=== PATIENT | male | born 1945 | race Caucasian/White ===

== ENCOUNTER 2020-12-28 16:29 | Emergency (ER) | payer MEDICARE, MEDICAID ==
[2020-12-28 18:27] LABS: Absolute Neutrophil Ct (ANC) 4.64 (1.4-6.9); BASOPHIL % 0.1 % (0.0-0.4); Basophil (Absolute #) 0.01 (0-0.4); Eosinophil % 3.9 % (0.00-5.0); Eosinophil (Absolute #) 0.26 (0-0.5); Hematocrit 35.8 % (42-50); Hemoglobin 10.6 gm/dl (12.5-18.0); Lymphocytes % 16.5 % (24.0-44.0); Mean Cell Volume 99.2 fl (78-100); Mean Corpuscular Hemoglobin 29.4 pg (26-32); Mean Corpuscular Hgb Concent. 29.6 g/dl (32-36); Mean Platelet Volume 9.2 fl (7.5-11.0); Monocyte (Absolute #) 0.67 (0.0-1.3); Neutrophil % 69.5 % (36.0-66.0); Platelet Count 202 K/mm3 (150-450); Red Blood Count 3.61 M/mm3 (4.1-5.6); Red Cell Distribution Width 13.5 % (11.5-14.0); White Blood Count 6.7 K/mm3 (4.0-10.5)
[2020-12-28 18:47] LABS: ALBUMIN 4.3 g/dL (3.5-5.0); ANION GAP 14.7 MEQ/L (5-15); BILIRUBIN,TOTAL 0.3 mg/dL (0.2-1.3); Creatinine 1 3.96 mg/dL (0.66-1.25); EST GLOMERULAR FILTRATION RATE 15.8 ML/MIN; MAGNESIUM 2.2 mg/dL (1.6-2.3); Potassium 4.8 mmol/L (3.5-5.1)
[2020-12-28 19:10] LABS: Appearance CLOUDY (CLEAR); Bacteria MODERATE /HPF (NEGATIVE); Bilirubin NEGATIVE (NEGATIVE); Blood NEGATIVE Ery/ul (0-5); Glucose NEGATIVE (NEGATIVE); Ketones NEGATIVE (NEGATIVE); Leukocyte Esterase LARGE (NEGATIVE); Nitrite NEGATIVE (NEGATIVE); Protein,Urine Dip >=500 (Negative); Specific Gravity 1.013 (1.005-1.025); Urobilinogen NEGATIVE mg/dL (0-1); WBC >100 /HPF (0-5)
[2020-12-28 19:34] VITALS: O2SAT 97
[2020-12-28 19:38] VITALS: BP 116/59; PULSE 78
--- NOTE | 2020-12-28 20:44 | ERPHSYRPT ---
- History of Present Illness Time Seen by Provider: 12/28/20 16:45 Source: patient Exam Limitations: no limitations Patient Subjective Stated Complaint: Pt was at dialysis when he had a syncopal episode, pt states that he didn't have one Triage Nursing Assessment: Pt brought to the ER by EMS from dialysis due to having a syncopal episode, pt denies having one, pt is confused, A&O to name and only, slow to answer and states that he doesn't know on most questions, pt unable to tell me if he completed dialysis today, pulses normal, skin P/C/D, rates head pain as 5/10 Physician History: Patient is a 75-year-old male presents to our emergency department via EMS for evaluation of syncope. Patient was at hemodialysis when he had a witnessed syncopal episode. Patient receives hemodialysis Saturday. Patient's fuels sales representative is Dr. Lee. Patient denies syncope. However patient does appear somewhat confused. Patient complains of a frontal headache. There was no indication of blunt head trauma. Patient denies chest pain. No nausea vomiting or diaphoresis. Symptoms are mild to moderate in intensity. No specific worsening improving factors. Patient voices no other complaints donnell rns at this time. Timing/Duration: today Severity: moderate Modifying Factors: Improves With: nothing Associated Symptoms: denies symptoms Allergies/Adverse Reactions: No Known Drug Allergies Allergy (Verified 12/28/20 16:51) Home Medications: Atorvastatin Calcium 80 mg PO DAILY 12/28/20 [History] Carvedilol 6.25 mg [Coreg 6.25 MG] 6.25 mg PO BID 12/28/20 [History] Donepezil HCl 10 mg [Aricept 10 MG] 10 mg PO HS 12/28/20 [History] Ferric Citrate [Auryxia] 210 mg PO TID 12/28/20 [History] Gabapentin 100 mg [Neurontin 100 MG] 100 mg PO DAILY 12/28/20 [History] Isosorbide Mononitrate 30 mg [Imdur 30 MG] 30 mg PO DAILY 12/28/20 [History] Midodrine HCl 5 mg [Proamatine 5 mg] 5 mg PO TID 12/28/20 [History] Olanzapine 2.5 mg PO DAILY 12/28/20 [History] Sertraline HCl 50 mg [Zoloft 50 mg Tablet] 75 mg PO DAILY 12/28/20 [History] Ticagrelor [Brilinta] 90 mg PO BID 12/28/20 [History] Trazodone HCl 100 mg PO DAILY 12/28/20 [History] Travel Risk - International Travel Have you traveled outside of the country in past 3 weeks: No - Coronavirus Screening Are you exhibiting any of the following symptoms?: No Close contact with a COVID-19 positive Pt in past 14-21 Days: No - Vaccine Status Have you recieved a Covid-19 vaccination: No - Review of Systems Constitutional: No Symptoms, No Fever, No Chills Eyes: No Symptoms Ears, Nose, & Throat: No Symptoms Respiratory: No Symptoms, No Cough, No Dyspnea Cardiac: No Symptoms, No Chest Pain, No Edema, No Syncope Abdominal/Gastrointestinal: No Symptoms, No Abdominal Pain, No Nausea, No Vomiting, No Diarrhea Genitourinary Symptoms: No Symptoms, No Dysuria Musculoskeletal: No Symptoms, No Back Pain, No Neck Pain Skin: No Symptoms, No Rash Neurological: No Symptoms, No Dizziness, No Focal Weakness, No Sensory Changes Psychological: No Symptoms Endocrine: No Symptoms Immunological/Allergic: No Symptoms All Other Systems: Reviewed and Negative - Past Medical History Pertinent Past Medical History: Yes Cardiac History: Hypertension Endocrine Medical History: Diabetes Type II History: Renal Disease - Past Surgical History Past Surgical History: No - Social History Smoking Status: Former smoker Exposure to second hand smoke: No Drug Use: none Patient Lives Alone: Yes - Nursing Vital Signs Nursing Vital Signs: Initial Vital Signs Temperature 97.4 F 12/28/20 16:32 Pulse Rate 80 12/28/20 16:32 Blood Pressure 142/66 12/28/20 16:32 O2 Sat by Pulse Oximetry 100 12/28/20 16:32 Pain Scale Pain Intensity 5 - Physical Exam General Appearance: no apparent distress, alert Eye Exam: PERRL/EOMI, eyes nml inspection Ears, Nose, Throat Exam: normal ENT inspection, TMs normal, pharynx normal, moist mucous membranes Neck Exam: normal inspection, non-tender, supple, full range of motion Respiratory Exam: normal breath sounds, lungs clear, No respiratory distress Cardiovascular Exam: regular rate/rhythm, normal heart sounds, normal peripheral pulses Gastrointestinal/Abdomen Exam: soft, normal bowel sounds, No tenderness, No mass Back Exam: normal inspection, normal range of motion, No CVA tenderness, No vertebral tenderness Extremity Exam: normal inspection, normal range of motion, pelvis stable Neurologic Exam: alert, oriented x 3, cooperative, normal mood/affect, sensation nml, No motor deficits Skin Exam: normal color, warm, dry, No rash Lymphatic Exam: No adenopathy SpO2 Interpretation: normal SpO2: 97 O2 Delivery: Room Air - Course Nursing assessment & vital signs reviewed: Yes EKG Interpreted by Me: RATE (75), Sinus Rhythm, NORMAL AXIS (TWI V5 and 6), NORMAL INTERVALS Ordered Tests: Active Orders 24 hr Category Date Time Status Market Research Assistant STAT Care 12/28/20 17:07 Completed EKG-ER Only STAT Care 12/28/20 17:06 Completed EKG-ER Only STAT Care 12/29/20 03:06 Completed IV Insertion STAT Care 12/28/20 17:06 Completed Pulse Oximetry (ED) STAT Care 12/28/20 17:06 Completed HEAD WITHOUT CONTRAST [CT] Stat Exams 12/28/20 17:08 Taken CBC W DIFF Stat Lab 12/28/20 18:24 Completed CMP Stat Lab 12/28/20 18:24 Completed CULTURE,URINE Stat Lab 12/28/20 18:46 Received MAGNESIUM Stat Lab 12/28/20 18:24 Completed TROPONIN Q3H Lab 12/28/20 18:24 Completed TROPONIN Q3H Lab 12/28/20 20:15 Completed TROPONIN Q3H Lab 12/28/20 23:15 Completed TROPONIN Q3H Lab 12/29/20 02:40 Completed UA W/RFX UR CULTURE Stat Lab 12/28/20 18:46 Completed Medication Summary Discontinued Medications Generic Name Dose Route Start Last Admin Trade Name Freq PRN Reason Stop Dose Admin Aspirin 324 mg 12/29/20 02:55 12/29/20 03:37 Baby Aspirin 81 Mg Chew PO 12/29/20 02:56 324 mg STAT ONE Administration Aspirin Confirm 12/29/20 03:37 Baby Aspirin 81 Mg Chew Administered 12/29/20 03:38 Dose 324 mg .ROUTE .STK-MED ONE Ceftriaxone Sodium/Dextrose 1 g in 50 mls @ 100 mls/hr 12/29/20 10:00 12/28/20 22:43 Rocephin 1 Gm-D5w 50 Ml Bag IV 01/01/21 09:59 Infused Q24H10 BELA Infusion Ceftriaxone Sodium/Dextrose Confirm 12/28/20 20:49 Rocephin 1 Gm-D5w 50 Ml Bag Administered 12/28/20 20:50 Dose 1 g in 50 mls @ ud IV .STK-MED ONE Nitroglycerin 1 gm 12/29/20 02:56 12/29/20 03:38 Nitro-Bid 2% Ud Packets TOP 12/29/20 02:57 1 gm STAT ONE Administration Nitroglycerin Confirm 12/29/20 03:37 Nitro-Bid 2% Ud Packets Administered 12/29/20 03:38 Dose 1 gm .ROUTE .STK-MED ONE Lab/Rad Data: Laboratory Result Diagrams 12/28/20 18:24 12/28/20 18:24 Laboratory Results 12/29/20 12/28/20 12/28/20 Range/Units 02:40 23:15 20:15 WBC (4.0-10.5) K/mm3 RBC (4.1-5.6) M/mm3 Hgb (12.5-18.0) gm/dl Hct (42-50) % MCV (78-100) fl MCH (26-32) pg MCHC (32-36) g/dl RDW (11.5-14.0) % Plt Count (150-450) K/mm3 MPV (7.5-11.0) fl Gran % (36.0-66.0) % Eos # (Auto) (0-0.5) Absolute Lymphs (auto) (1.0-4.6) Absolute Monos (auto) (0.0-1.3) Lymphocytes % (24.0-44.0) % Monocytes % (0.0-12.0) % Eosinophils % (0.00-5.0) % Basophils % (0.0-0.4) % Absolute Granulocytes (1.4-6.9) Basophils # (0-0.4) Sodium (137-145) mmol/L Potassium (3.5-5.1) mmol/L Chloride (98-107) mmol/L Carbon Dioxide (22-30) mmol/L Anion Gap (5-15) MEQ/L BUN (9-20) mg/dL Creatinine (0.66-1.25) mg/dL Estimated GFR ML/MIN Glucose (74-106) mg/dL Calcium (8.4-10.2) mg/dL Magnesium (1.6-2.3) mg/dL Total Bilirubin (0.2-1.3) mg/dL AST (17-59) U/L ALT (0-50) U/L Alkaline Phosphatase (38-126) U/L Troponin I 0.041 H* 0.043 H* 0.038 H* (0.000-0.034) ng/mL Serum Total Protein (6.3-8.2) g/dL Albumin (3.5-5.0) g/dL Urine Color (YELLOW) Urine Appearance (CLEAR) Urine pH (5-6) Ur Specific [place] (1.005-1.025) Urine Protein (Negative) Urine Ketones (NEGATIVE) Urine Blood (0-5) Kosta/ul Urine Nitrite (NEGATIVE) Urine Bilirubin (NEGATIVE) Urine Urobilinogen (0-1) mg/dL Ur Leukocyte Esterase (NEGATIVE) Urine WBC (Auto) (0-5) /HPF Urine Bacteria (Auto) (NEGATIVE) /HPF Urine Culture Reflexed (NO) Urine Glucose (NEGATIVE) mg/dL 12/28/20 12/28/20 12/28/20 Range/Units 18:46 18:24 18:24 WBC (4.0-10.5) K/mm3 RBC (4.1-5.6) M/mm3 Hgb (12.5-18.0) gm/dl Hct (42-50) % MCV (78-100) fl MCH (26-32) pg MCHC (32-36) g/dl RDW (11.5-14.0) % Plt Count (150-450) K/mm3 MPV (7.5-11.0) fl Gran % (36.0-66.0) % Eos # (Auto) (0-0.5) Absolute Lymphs (auto) (1.0-4.6) Absolute Monos (auto) (0.0-1.3) Lymphocytes % (24.0-44.0) % Monocytes % (0.0-12.0) % Eosinophils % (0.00-5.0) % Basophils % (0.0-0.4) % Absolute Granulocytes (1.4-6.9) Basophils # (0-0.4) Sodium 137 (137-145) mmol/L Potassium 4.8 (3.5-5.1) mmol/L Chloride 94 L (98-107) mmol/L Carbon Dioxide 33 H (22-30) mmol/L Anion Gap 14.7 (5-15) MEQ/L BUN 21 H (9-20) mg/dL Creatinine 3.96 H (0.66-1.25) mg/dL Estimated GFR 15.8 ML/MIN Glucose 148 H (74-106) mg/dL Calcium 9.0 (8.4-10.2) mg/dL Magnesium 2.2 (1.6-2.3) mg/dL Total Bilirubin 0.30 (0.2-1.3) mg/dL AST 22 (17-59) U/L ALT 12 (0-50) U/L Alkaline Phosphatase 130 H (38-126) U/L Troponin I 0.037 H* (0.000-0.034) ng/mL Serum Total Protein 8.0 (6.3-8.2) g/dL Albumin 4.3 (3.5-5.0) g/dL Urine Color AIDEE (YELLOW) Urine Appearance CLOUDY (CLEAR) Urine pH 7.0 (5-6) Ur Specific [place] 1.013 (1.005-1.025) Urine Protein >=500 (Negative) Urine Ketones NEGATIVE (NEGATIVE) Urine Blood NEGATIVE (0-5) Kosta/ul Urine Nitrite NEGATIVE (NEGATIVE) Urine Bilirubin NEGATIVE (NEGATIVE) Urine Urobilinogen NEGATIVE (0-1) mg/dL Ur Leukocyte Esterase LARGE (NEGATIVE) Urine WBC (Auto) >100 (0-5) /HPF Urine Bacteria (Auto) MODERATE (NEGATIVE) /HPF Urine Culture Reflexed YES (NO) Urine Glucose NEGATIVE (NEGATIVE) mg/dL 12/28/20 Range/Units 18:24 WBC 6.7 (4.0-10.5) K/mm3 RBC 3.61 L (4.1-5.6) M/mm3 Hgb 10.6 L (12.5-18.0) gm/dl Hct 35.8 L (42-50) % MCV 99.2 (78-100) fl MCH 29.4 (26-32) pg MCHC 29.6 L (32-36) g/dl RDW 13.5 (11.5-14.0) % Plt Count 202 (150-450) K/mm3 MPV 9.2 (7.5-11.0) fl Gran % 69.5 H (36.0-66.0) % Eos # (Auto) 0.26 (0-0.5) Absolute Lymphs (auto) 1.10 (1.0-4.6) Absolute Monos (auto) 0.67 (0.0-1.3) Lymphocytes % 16.5 L (24.0-44.0) % Monocytes % 10.0 (0.0-12.0) % Eosinophils % 3.9 (0.00-5.0) % Basophils % 0.1 (0.0-0.4) % Absolute Granulocytes 4.64 (1.4-6.9) Basophils # 0.01 (0-0.4) Sodium (137-145) mmol/L Potassium (3.5-5.1) mmol/L Chloride (98-107) mmol/L Carbon Dioxide (22-30) mmol/L Anion Gap (5-15) MEQ/L BUN (9-20) mg/dL Creatinine (0.66-1.25) mg/dL Estimated GFR ML/MIN Glucose (74-106) mg/dL Calcium (8.4-10.2) mg/dL Magnesium (1.6-2.3) mg/dL Total Bilirubin (0.2-1.3) mg/dL AST (17-59) U/L ALT (0-50) U/L Alkaline Phosphatase (38-126) U/L Troponin I (0.000-0.034) ng/mL Serum Total Protein (6.3-8.2) g/dL Albumin (3.5-5.0) g/dL Urine Color (YELLOW) Urine Appearance (CLEAR) Urine pH (5-6) Ur Specific [place] (1.005-1.025) Urine Protein (Negative) Urine Ketones (NEGATIVE) Urine Blood (0-5) [place]/ul Urine Nitrite (NEGATIVE) Urine Bilirubin (NEGATIVE) Urine Urobilinogen (0-1) mg/dL Ur Leukocyte Esterase (NEGATIVE) Urine WBC (Auto) (0-5) /HPF Urine Bacteria (Auto) (NEGATIVE) /HPF Urine Culture Reflexed (NO) Urine Glucose (NEGATIVE) mg/dL - Progress Progress: improved Progress Note: Case discussed with who accepts admission. Patient received a dose of Rocephin for urinary tract infection. Troponin is marginally elevated however this may be in part related to his end-stage renal disease. Patient has no chest pain. We will perform a Covid test. We will also repeat troponin. If troponin is stable or decreasing we will admit to our hospital here at [facility]. Otherwise patient will be transferred. 12/28/20 20:48 12/29/20 03:27 Attempted transfer to [facility] and [facility] however were declined due to no bed availability. We contacted [facility] Dr. Velasco accept transfer. Plan of care discussed with patient. He agrees to transfer to [facility] for further evaluation and treatment. Patient daughter notified of plan of care and agrees. Discussed with Dr.: Brody Will see patient in: hospital (observation) Counseled pt/family regarding: lab results, diagnosis, rad results - Departure Departure Disposition: Transfer Clinical Impression: UTI (urinary tract infection), Syncope, Elevated troponin Condition: Stable Critical Care Time: No Referrals: Provider,Unknown [Primary Care Provider] -
[2020-12-28] MEDS ORDERED: ROCEPHIN 1 Gm-D5w 50 ml Bag** 1 G/50 ML IVPB IV ONE (20:49)
[2020-12-29] MEDS ORDERED: BABY ASPIRIN 81 MG CHEW PO ONE (02:55)
[2020-12-29] MEDS ORDERED: NITRO-BID 2% UD PACKETS TOP ONE (02:56)
[2020-12-29] MEDS ORDERED: NITRO-BID 2% UD PACKETS ONE (03:37)
[2020-12-29] MEDS ORDERED: BABY ASPIRIN 81 MG CHEW ONE (03:37)
--- NOTE | 2020-12-29 08:40 | XRAY ---
Indication: Syncope and confusion. Multiple contiguous axial images obtained through the head. 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 No acute intracranial hemorrhage, hydrocephalus, or mass effect. Fourth ventricle is midline. Bony calvarium intact. Visualized paranasal sinuses and mastoid air cells are clear. 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
[2020-12-29] MEDS ORDERED: ROCEPHIN 1 Gm-D5w 50 ml Bag** 1 G/50 ML IVPB IV SCH (10:00)
== END 2020-12-29 04:20 ==
LOC: ED 16:29
DX: N39.0 Urinary tract infection, site not specified (principal); R55 Syncope and collapse; R77.8 Other specified abnormalities of plasma proteins; I10 Essential (primary) hypertension; E11.9 Type 2 diabetes mellitus without complications; Z79.899 Other long term (current) drug therapy
CPT/HCPCS: 36415; 70450; 80053; 81001; 83735; 84484; 85025; 87077; 87086; 87186; 93005; 93041; 94760; 96365; 99285; J0696; A9270-GY